=== PATIENT | male | born 1970 | race Caucasian/White ===

== ENCOUNTER 2020-10-30 12:56 | Outpatient (CLI) | payer BC ==
[~2020-10-30 12:56] MED LIST: CYCL5TAB PO; GABA800T5 PO; HYDR-2214 PO; LORA-446 PO; OXYC-380 PO; RISP4TAB66 PO
== END 2020-10-30 23:59 | disposition home or self-care (01) ==
LOC: CFH 12:56
PROVIDERS: ATTEND Physician Assistant Surgical
DX: M47.817 Spondylosis without myelopathy or radiculopathy, lumbosacral region (principal); M51.36 Other intervertebral disc degeneration, lumbar region; M48.061 Spinal stenosis, lumbar region without neurogenic claudication
CPT/HCPCS: 72131

== ENCOUNTER → 2021-03-12 | Outpatient (CLI) | payer BC | END | disposition home or self-care (01) | LOC: CFH 15:29 | PROVIDERS: ATTEND Internal Medicine | DX: Z12.2 Encounter for screening for malignant neoplasm of respiratory organs (principal); F17.210 Nicotine dependence, cigarettes, uncomplicated; J43.9 Emphysema, unspecified; M51.34 Other intervertebral disc degeneration, thoracic region; I70.0 Atherosclerosis of aorta | CPT/HCPCS: 71271 ==